=== PATIENT | male | born 1955 ===

== ENCOUNTER 2019-03-26 22:37 | Observation (INO) | payer MEDICARE ==
--- NOTE | 2019-03-26 23:18 | C.PDOC ---
History Of Present Illness Patient presents with SOB and cough productive of yellowish sputum. Patient still smokes. Speaking mostly in complete sentences. Denies fever or chills. Time Seen by Provider: 03/26/19 23:17 Chief Complaint (Nursing): Shortness Of Breath History Per: Patient History/Exam Limitations: no limitations Onset/Duration Of Symptoms: Days Current Symptoms Are (Timing): Still Present Initiating Event: Upper Respiratory Illness Exacerbating Factor(s): Coughing Current Respiratory Medications: See Home Med List Severity: Moderate Pain Scale Rating Of: 4 Associated Symptoms: Productive Cough Reports Recently: Seen In ED, Treated By A Physician, Hospitalized Recent travel outside of the [place]: No Additional History Per: Patient Past Medical History Reviewed: Historical Data, Nursing Documentation, Vital Signs Vital Signs: Last Vital Signs Temp 98.2 F 03/26/19 22:48 Pulse 82 03/26/19 22:48 Resp 20 03/26/19 22:48 BP Pulse Ox 92 L 03/26/19 22:48 Primary Care Physician: Non H Provider - Medical History PMH: COPD, Schizophrenia Denies: Diabetes, Hepatitis, HIV, HTN, Seizures, Sexually Transmitted Disease - [facility] Procedures GROUP PSYCHOTHERAPY (02/19/19) INDIVIDUAL PSYCHOTHERAPY, SUPPORTIVE (02/19/19) Family History: States: No Known Family Hx - Social History Hx Alcohol Use: No Hx Substance Use: Yes - Immunization History Hx Tetanus Toxoid Vaccination: No Hx Influenza Vaccination: No Hx Pneumococcal Vaccination: No Review Of Systems Constitutional: Negative for: Fever, Chills Cardiovascular: Negative for: Chest Pain, Palpitations Respiratory: Positive for: Cough, Shortness of Breath, Sputum Gastrointestinal: Negative for: Nausea, Vomiting Neurological: Negative for: Weakness, Numbness Physical Exam - Physical Exam Appears: Non-toxic Skin: Warm, Dry Head: Normacephalic Oral Mucosa: Moist Neck: Supple Chest: Symmetrical, No Tenderness Cardiovascular: Rhythm Regular Respiratory: No Rales, Rhonchi (Scattered), No Wheezing Gastrointestinal/Abdominal: Soft, No Tenderness Back: No CVA Tenderness Extremity: Normal ROM Extremity: Bilateral: Atraumatic Neurological/Psych: Oriented x3 Gait: Steady ED Course And Treatment - Laboratory Results Result Diagrams: 03/27/19 00:06 03/27/19 00:06 O2 Sat by Pulse Oximetry: 92 (Room air) Pulse Ox Interpretation: Abnormal Progress Note: Blood work, EKG, CXR, urinalysis, and blood work ordered. Solumedrol and duoneb administered. Critical Care Time - Critical Care Note Total Time (in mins): 30 Documented critical care: time excludes all time spent performing seperately billable procedures. Disposition Discussed With Dr.: Ward Taylor Comment: accepted the pt on her service and took over the care at 12:52 AM Doctor Will See Patient In The: Hospital Counseled Patient/Family Regarding: Studies Performed, Diagnosis - Disposition Referrals: Non [facility] Provider, [Primary Care Provider] - Disposition: HOSPITALIZED Disposition Time: 23:18 Condition: FAIR Forms: On[employer] (Lao) - POA Present On Arrival: Poor Glycemic Control - Clinical Impression Clinical Impression: Chr obstructive pulmonary disease w/ acute lower respiratory infxn - Scribe Statement The provider has reviewed the documentation as recorded by the Scribe Emil Deluna All medical record entries made by the Scribe were at my direction and personally dictated by me. I have reviewed the chart and agree that the record accurately reflects my personal performance of the history, physical exam, medical decision making, and the department course for this patient. I have also personally directed, reviewed, and agree with the discharge instructions and dis position. Decision To Admit - Pt Status Changed To: Hospital Disposition Of: Observation - . Bed Request Type: Regular Admitting Physician: Ward Taylor Patient Diagnosis: Chr obstructive pulmonary disease w/ acute lower respiratory infxn
[2019-03-26] MEDS ORDERED: Albuterol-Ipratrop 3 mg / 0.5 (3 ml) UD ONE (23:22)
[2019-03-26 23:53] LABS: ABG ALLEN TEST POS; ARTERIAL BLOOD GAS O2 SAT 99.2 % (95-98); ARTERIAL BLOOD GAS PCO2 42 mm/Hg (35-45); ARTERIAL BLOOD GAS PH 7.44 (7.35-7.45); ARTERIAL BLOOD GAS PO2 103 mm/Hg (80-100); ARTERIAL BLOOD GAS TCO2 29.8 mmol/L (22-28)
[2019-03-27] MEDS: Albuterol-Ipratrop 3 mg / 0.5 (3 ml) UD IH SCH ×2 (00:05→00:06)
[2019-03-27 00:10] LABS: HEMOGLOBIN 12.7 g/dL (12.0-18.0); LYMPH % 12.8 % (20.0-40.0); MEAN CELL VOLUME 79.7 fL (80.0-94.0); MEAN CORPUSCULAR HEMOGLOBIN 26.9 pg (27.0-31.0); MEAN CORPUSCULAR HGB CONC 33.7 g/dL (33.0-37.0); MEAN PLATELET VOLUME 10.5 fL (7.2-11.7); NEUT % 77.9 % (50.0-75.0); RBC 4.73 Mil/uL (4.40-5.90); WHITE BLOOD COUNT 13.4 K/uL (4.8-10.8)
[2019-03-27 00:11] LABS: BASO # 0.1 K/uL (0.0-0.2); BASO % 0.5 % (0.0-2.0); EOS % 0.1 % (0.0-4.0); LYMPH # 1.7 K/uL (1.0-4.3); MONO # 1.2 K/uL (0.0-0.8); MONO % 8.7 % (0.0-10.0); NEUT # 10.4 K/uL (1.8-7.0)
[2019-03-27] MEDS ORDERED: Albuterol-Ipratrop 3 mg / 0.5 (3 ml) UD ONE (00:11)
[2019-03-27 00:15] LABS: INR 1.4
[2019-03-27 00:23] LABS: ALB/GLOB RATIO 1.2 (1.0-2.1); ALBUMIN 3.8 g/dL (3.5-5.0); ALT/SGPT 34 U/L (21-72); AST/SGOT 50 U/L (17-59); BLOOD UREA NITROGEN 13 mg/dL (9-20); CALCIUM 8.7 mg/dl (8.6-10.4); GFR NON-AFRICAN AMERICAN > 60
[2019-03-27] MEDS ORDERED: Azithromycin 500mg/250ML NS 500 MG/250 ML BAG IVPB SCH (00:30)
[2019-03-27] MEDS ORDERED: cefTRIAXone IV 1 gm in Dextros 50 ML IVPB ONE (00:30)
[2019-03-27] MEDS ORDERED: Azithromycin 500mg/250ML NS 500 MG/250 ML BAG IVPB ONE ×2 (00:30→02:07)
[2019-03-27 01:46] LABS: URINE BILIRUBIN NEGATIVE (NEGATIVE); URINE BLOOD NEGATIVE (NEGATIVE); URINE CLARITY Hazy (Clear); URINE COLOR Amber (YELLOW); URINE GLUCOSE (UA) NORMAL (Normal); URINE LEUKOCYTE ESTERASE NEG Leu/uL (Negative); URINE PROTEIN 1+ mg/dL (NEGATIVE)
[2019-03-27 02:50] VITALS: RESP 20
[2019-03-27] MEDS: MethylPREDNISolone 40 mg Vial IVP SCH ×3 (05:27→21:18)
[2019-03-27 07:27] LABS: ALBUMIN 3.4 g/dL (3.5-5.0); ALT/SGPT 32 U/L (21-72); AST/SGOT 41 U/L (17-59); BLOOD UREA NITROGEN 11 mg/dL (9-20); CALCIUM 8.8 mg/dl (8.6-10.4); GFR NON-AFRICAN AMERICAN > 60
[2019-03-27 08:20] LABS: HEMOGLOBIN 12.3 g/dL (12.0-18.0); LYMPH # 0.6 K/uL (1.0-4.3); MEAN CELL VOLUME 80.1 fL (80.0-94.0); MEAN PLATELET VOLUME 11.2 fL (7.2-11.7); MONO # 0.1 K/uL (0.0-0.8); MONO % 1.3 % (0.0-10.0); NEUT # 8.1 K/uL (1.8-7.0); NEUT % 91.7 % (50.0-75.0); NRBC % 0.1 % (0.0-2.0); PLATELET COUNT 273 K/uL (130-400); RBC 4.38 Mil/uL (4.40-5.90); RED CELL DISTRIBUTION WIDTH 16.2 % (11.5-14.5); WHITE BLOOD COUNT 8.8 K/uL (4.8-10.8)
[2019-03-27] MEDS: Albuterol-Ipratrop 3 mg / 0.5 (3 ml) UD INH SCH ×3 (08:20→20:35)
--- NOTE | 2019-03-27 09:53 | CP.PCM.PN ---
Subjective - Date & Time of Evaluation Date of Evaluation: 03/27/19 Time of Evaluation: 09:53 - Subjective Subjective: H&P dictated #[id number] Objective - Vital Signs/Intake and Output Vital Signs (last 24 hours): Temp Pulse Resp BP Pulse Ox 98.5 F 62 20 95/62 L 97 03/27/19 08:00 03/27/19 08:00 03/27/19 08:00 03/27/19 08:00 03/27/19 08:00 - Medications Medications: Current Medications Albuterol/Ipratropium (Duoneb 3 Mg/0.5 Mg (3 Ml) Ud) 3 ml INH RQ6 [facility] Last Admin: 03/27/19 08:20 Dose: 3 ml Bupropion HCl (Wellbutrin Xl) 150 mg PO DAILY [facility] Escitalopram Oxalate (Lexapro) 20 mg PO DAILY [facility] Methylprednisolone (Solu-Medrol) 40 mg IVP Q8 [facility] Last Admin: 03/27/19 05:27 Dose: 40 mg Pantoprazole Sodium (Protonix Ec Tab) 40 mg PO DAILY [facility] Pneumococcal Polyvalent Vaccine (Pneumovax 23 Vaccine) 0.5 ml IM .ONCE ONE Stop: 03/29/19 10:01 Quetiapine Fumarate (Seroquel) 50 mg PO HS [facility] Quetiapine Fumarate (Seroquel) 100 mg PO HS [facility] - Labs Labs: 03/27/19 07:06 03/27/19 07:06 PT 15.0 SECONDS (9.7-12.2) H 03/27/19 00:06 INR 1.4 03/27/19 00:06 APTT 35.0 SECONDS (21-34) H 03/27/19 00:06
[2019-03-27] MEDS: buPROPion 150 mg/24 Hours XL Tab PO SCH (10:27)
[2019-03-27] MEDS: Pantoprazole 40 mg EC Tab PO SCH (10:27)
[2019-03-27] MEDS: Enoxaparin 40 mg Syringe SC SCH (10:28)
[2019-03-27] MEDS ORDERED: Azithromycin 500 MG in Sodium Chloride 0.9% 250 ML IVPB SCH (12:00)
[2019-03-27 12:18] LABS: LYMPHOCYTE 5 % (20-40); MONOCYTE 1 % (0-10); NEUTROPHIL 94 % (50-75); TOTAL CELLS COUNTED 100
[2019-03-27 12:20] LABS: ANISOCYTOSIS SLIGHT; PLATELET ESTIMATE NORMAL (NORMAL)
[2019-03-27] MEDS: Azithromycin 500 MG in Sodium Chloride 0.9% 250 ML IVPB SCH (13:48)
[2019-03-27 17:14] LABS: BARBITURATES, UR NEGATIVE (NEGATIVE); BENZODIAZEPINES, UR NEGATIVE (NEGATIVE); PHENCYCLIDINE, UR NEGATIVE (NEGATIVE)
[2019-03-27 17:15] LABS: OPIATES, UR POSITIVE (NEGATIVE)
--- NOTE | 2019-03-27 17:51 | RAD ---
Date of service: 03/26/2019 PROCEDURE: CHEST RADIOGRAPH, 1 VIEW HISTORY: SOB COMPARISON: 02/19/2019 FINDINGS: LUNGS: Clear. PLEURA: No pneumothorax or pleural fluid seen. CARDIOVASCULAR: No aortic atherosclerotic calcification present. Normal. OSSEOUS STRUCTURES: No significant abnormalities. VISUALIZED UPPER ABDOMEN: Normal. OTHER FINDINGS: None. IMPRESSION: No active disease.
--- NOTE | 2019-03-27 23:49 | HP ---
CHIEF COMPLAINT: Progressive worsening of shortness of breath, wheezing, and cough with yellowish sputum for the past one month. HISTORY OF PRESENT ILLNESS: Mr. Zambrano is a 64-year-old male with past medical history of depression and COPD who was admitted to the hospital in 01/2019 for major depression to psych floor, discharged on 03/05/2019. Has been homeless for the past two months. Came into the emergency room with complaints of progressive worsening of cough with yellowish-greenish sputum, shortness of breath, wheezing, and sore throat. In the ED, the patient was found to be having COPD exacerbation, and the patient is being admitted for further management. When I examined the patient, he is feeling slightly better. Denies any headache or dizziness. Complaining of shortness of breath and wheezing. Denies any nausea or vomiting. Denies any chest pain. Denies any abdominal pain, diarrhea, or constipation. Denies any urinary complaints. Denies any leg pains or leg swelling. PAST MEDICAL HISTORY: Depression. Denies any hypertension or diabetes mellitus. PAST SURGICAL HISTORY: Underwent bone grafting many years ago. FAMILY HISTORY: Diabetes mellitus in mother. Both . Mother from throat cancer. PERSONAL HISTORY: He is , having four children. Worked in [employer]. Now, he is disabled and retired. SOCIAL HISTORY: He smokes one pack per day. Drinks alcohol. Uses heroin or cocaine intermittently. ALLERGIES: NO KNOWN DRUG ALLERGIES. MEDICATIONS: His medications at home are Seroquel 150 mg p.o. at bedtime, Lexapro 20 mg daily, Wellbutrin 150 mg p.o. daily. REVIEW OF SYSTEMS: As described in history of present illness. All other systems reviewed and were found to be negative. PHYSICAL EXAMINATION: GENERAL: Middle-aged male, lying in bed, in no acute distress. VITAL SIGNS: Blood pressure 100/55, pulse 81, respirations 20, temperature 98 degrees Fahrenheit, O2 sat is 97% on 2 L nasal cannula. HEENT: Pupils are equal, round and reacting to light and accommodation. Extraocular muscles intact. No icterus. No pallor. No oral thrush. No pharyngeal congestion. NECK: Supple. No JVD. LUNGS: Bilateral vesicular breath sounds. No wheezing. No rhonchi. CARDIOVASCULAR SYSTEM: S1 and S2 present, regular. ABDOMEN: Soft and nontender. Bowel sounds present. No guarding. No rigidity. No rebound tenderness noted. CENTRAL NERVOUS SYSTEM: Alert, awake, and oriented x3. No focal deficits noted. EXTREMITIES: No edema. Palpable peripheral pulses. LABORATORY DATA: Labs done from the emergency room: WBC 13.4, hemoglobin 12.7, hematocrit 37.7, platelets 297. PT 15, INR 1.4, PTT 35. ABG on 3 L: The pH is 7.44, pCO2 is 42, pO2 is 103. Sodium 131, potassium 3.2, chloride 97, bicarb 28, BUN 13, creatinine 0.6, glucose 115, calcium 8.7, magnesium 2. Total bilirubin 0.8, AST 30, ALT 34, alkaline phosphatase 90, total protein 7, albumin 3.8. UA: Specific gravity 1.030, pH is 5, protein 1+, otherwise negative. Chest x-ray: Negative for any infiltrate. EKG: No acute ST-T changes. ASSESSMENT AND PLAN: Middle-aged male with history of chronic obstructive pulmonary disease and depression, came in with one-month history of progressive worsening of cold, cough with yellowish-greenish sputum, recent shortness of breath. In the emergency department, the patient was found to be having chronic obstructive pulmonary disease exacerbation, and the patient is being admitted for further management. 1. Chronic obstructive pulmonary disease exacerbation. 2. Acute bronchitis, rule out infiltrate. 3. Major depression, recently treated at [facility]. PLAN: The patient is being admitted to med-surg floor. He received Solu-Medrol and nebulizer treatment and prophylactic antibiotics in the emergency room. Continue with Rocephin 1 g daily with Zithromax 500 mg IV daily. Continue with DuoNeb every 6 hours, Solu-Medrol 40 mg IV every 8 hours. Peak flows before and after treatments. GI prophylaxis with Protonix. We will check drug screen. Repeat labs in the morning. The patient is homeless. We will request clinical social work aide for discharge planning. We will continue with his psychiatric medication. We will ask for the recommendation as his clinical course progresses. Ward Taylor MD
[2019-03-28] MEDS: Albuterol-Ipratrop 3 mg / 0.5 (3 ml) UD INH SCH ×4 (01:35→19:47)
[2019-03-28] MEDS: MethylPREDNISolone 40 mg Vial IVP SCH (06:01)
[2019-03-28 08:43] LABS: BASO % 0.3 % (0.0-2.0); HEMOGLOBIN 11.4 g/dL (12.0-18.0); LYMPH # 0.8 K/uL (1.0-4.3); LYMPH % 4.4 % (20.0-40.0); MEAN CELL VOLUME 80.5 fL (80.0-94.0); MEAN CORPUSCULAR HEMOGLOBIN 26.6 pg (27.0-31.0); MEAN CORPUSCULAR HGB CONC 33.1 g/dL (33.0-37.0); MEAN PLATELET VOLUME 11.2 fL (7.2-11.7); MONO # 0.4 K/uL (0.0-0.8); MONO % 2.4 % (0.0-10.0); NEUT # 16.2 K/uL (1.8-7.0); NEUT % 92.9 % (50.0-75.0); PLATELET COUNT 307 K/uL (130-400); RBC 4.27 Mil/uL (4.40-5.90); RED CELL DISTRIBUTION WIDTH 16.2 % (11.5-14.5)
[2019-03-28 08:52] LABS: ALB/GLOB RATIO 1.1 (1.0-2.1); ALBUMIN 3.1 g/dL (3.5-5.0); ALT/SGPT 40 U/L (21-72); AST/SGOT 29 U/L (17-59); BLOOD UREA NITROGEN 13 mg/dL (9-20); CALCIUM 8.8 mg/dl (8.6-10.4); GFR NON-AFRICAN AMERICAN > 60; HDL CHOLESTEROL 24 mg/dL (30-70)
[2019-03-28 09:02] LABS: LDL CHOLESTEROL 86 mg/dL (0-129)
[2019-03-28 09:11] LABS: WHITE BLOOD COUNT 17.5 K/uL (4.8-10.8)
[2019-03-28] MEDS: Pantoprazole 40 mg EC Tab PO SCH (09:13)
[2019-03-28] MEDS: Enoxaparin 40 mg Syringe SC SCH (09:13)
[2019-03-28] MEDS: buPROPion 150 mg/24 Hours XL Tab PO SCH (09:13)
[2019-03-28] MEDS: Azithromycin 500 MG in Sodium Chloride 0.9% 250 ML IVPB SCH (10:02)
[2019-03-28 11:06] LABS: ANISOCYTOSIS MODERATE; BANDS 2 % (0-2); GIANT PLATELETS PRESENT; LARGE PLATELETS PRESENT; LYMPHOCYTE 5 % (20-40); MONOCYTE 2 % (0-10); NEUTROPHIL 91 % (50-75); PLATELET ESTIMATE NORMAL (NORMAL); TOTAL CELLS COUNTED 100
[2019-03-28 11:07] LABS: HYPOCHROMIC SLIGHT; TOXIC GRANULATION PRESENT
[2019-03-28 11:08] LABS: POLYCHROMIC SLIGHT
--- NOTE | 2019-03-28 13:23 | CP.PCM.PN ---
Subjective - Date & Time of Evaluation Date of Evaluation: 03/28/19 Time of Evaluation: 13:23 - Subjective Subjective: Progress note dictated #[id number] Objective - Vital Signs/Intake and Output Vital Signs (last 24 hours): Temp Pulse Resp BP Pulse Ox 98 F 60 20 98/55 L 95 03/28/19 08:00 03/28/19 08:00 03/28/19 08:00 03/28/19 08:00 03/27/19 23:18 Intake and Output: 03/28/19 03/28/19 06:59 18:59 Intake Total 120 Balance 120 - Medications Medications: Current Medications Albuterol/Ipratropium (Duoneb 3 Mg/0.5 Mg (3 Ml) Ud) 3 ml INH RQ6 [facility] Last Admin: 03/28/19 09:23 Dose: Not Given Bupropion HCl (Wellbutrin Xl) 150 mg PO DAILY [facility] Last Admin: 03/28/19 09:13 Dose: 150 mg Enoxaparin Sodium (Lovenox) 40 mg SC DAILY [facility] Last Admin: 03/28/19 09:13 Dose: Not Given Escitalopram Oxalate (Lexapro) 20 mg PO DAILY [facility] Last Admin: 03/28/19 09:13 Dose: 20 mg Ceftriaxone Sodium 1 gm/ (Sodium Chloride) 100 mls @ 100 mls/hr IVPB DAILY [facility]; Protocol Last Admin: 03/28/19 10:02 Dose: Not Given Methylprednisolone (Solu-Medrol) 40 mg IVP DAILY [facility] Pantoprazole Sodium (Protonix Ec Tab) 40 mg PO DAILY [facility] Last Admin: 03/28/19 09:13 Dose: 40 mg Pneumococcal Polyvalent Vaccine (Pneumovax 23 Vaccine) 0.5 ml IM .ONCE ONE Stop: 03/29/19 10:01 Quetiapine Fumarate (Seroquel) 100 mg PO HS [facility] Last Admin: 03/27/19 21:31 Dose: 100 mg - Labs Labs: 03/28/19 08:21 03/28/19 08:21 PT 15.0 SECONDS (9.7-12.2) H 03/27/19 00:06 INR 1.4 03/27/19 00:06 APTT 35.0 SECONDS (21-34) H 03/27/19 00:06
[2019-03-28] MEDS: guaiFENesin 600 mg ER Tab PO SCH (18:08)
[2019-03-29] MEDS: Albuterol-Ipratrop 3 mg / 0.5 (3 ml) UD INH SCH ×4 (02:36→19:50)
--- NOTE | 2019-03-29 07:27 | PN ---
DATE: 03/28/2019 SUBJECTIVE: The patient is seen and examined at bedside. The patient claims he is still having cough with greenish sputum, still complaining of shortness of breath. He claims that he is not able to keep anything down that he has been eating. Denies any diarrhea. Denies any episodes of vomiting. PHYSICAL EXAMINATION: GENERAL: Middle-aged male, lying in bed, in no acute distress. VITAL SIGNS: Blood pressure 98/55, pulse 60, respirations 20, temperature 98 degrees Fahrenheit, O2 sat is 95% on room air. HEENT: Pupils are equal, round, reacting to light and accommodation. Extraocular muscles intact. No icterus. No pallor. No oral thrush. No oropharyngeal congestion. NECK: Supple. No JVD. LUNGS: Bilateral vesicular breath sounds. Occasional wheezing. No rhonchi. CARDIOVASCULAR SYSTEM: S1 and S2 present, regular. ABDOMEN: Soft, nontender. Bowel sounds present. No guarding. No rigidity. No rebound tenderness noted. CENTRAL NERVOUS SYSTEM: Alert, awake, and oriented x3. No focal deficits noted. EXTREMITIES: No edema. Palpable peripheral pulses. MEDICATIONS: Include DuoNeb every 6 hours, Wellbutrin 150 mg daily, Rocephin 1 g daily, Lovenox 40 mg subcu daily, Lexapro 20 mg daily, Solu-Medrol 40 mg IV every 8 hours, Protonix 40 mg daily, Seroquel 100 mg p.o. h.s. ASSESSMENT AND PLAN: Middle-aged male with history of depression, chronic obstructive pulmonary disease, admitted for acute bronchitis, chronic obstructive pulmonary disease exacerbation, continue with nebulizer treatments, Solu-Medrol intravenous. We will decrease Solu-Medrol to 40 mg intravenous daily as elevated WBC count probably secondary to steroids, continue with nebulizer treatments, Rocephin and Zithromax. Chest x-ray is negative for any infiltrate. We will add Mucinex, we will check peak flows before and after treatment. Repeat labs in a.m. Continue with his psych meds as per Psychiatry. assistant guest services manager for discharge planning. We will give Zofran as needed. Ward Taylor MD
[2019-03-29 08:57] LABS: BASO % 0.2 % (0.0-2.0); HEMOGLOBIN 11.7 g/dL (12.0-18.0); LYMPH % 18.4 % (20.0-40.0); MEAN CELL VOLUME 81.1 fL (80.0-94.0); MEAN CORPUSCULAR HEMOGLOBIN 27.6 pg (27.0-31.0); MEAN PLATELET VOLUME 10.4 fL (7.2-11.7); MONO # 0.6 K/uL (0.0-0.8); MONO % 5.9 % (0.0-10.0); NEUT # 8.2 K/uL (1.8-7.0); NEUT % 75.5 % (50.0-75.0); NRBC % 0.1 % (0.0-2.0); RBC 4.23 Mil/uL (4.40-5.90); RED CELL DISTRIBUTION WIDTH 16.2 % (11.5-14.5); WHITE BLOOD COUNT 10.9 K/uL (4.8-10.8)
[2019-03-29 09:20] LABS: BLOOD UREA NITROGEN 19 mg/dL (9-20); CALCIUM 8.3 mg/dl (8.6-10.4); GFR NON-AFRICAN AMERICAN > 60
[2019-03-29] MEDS: MethylPREDNISolone 40 mg Vial IVP SCH (09:54)
[2019-03-29] MEDS: buPROPion 150 mg/24 Hours XL Tab PO SCH (09:54)
[2019-03-29] MEDS: Pantoprazole 40 mg EC Tab PO SCH (09:54)
[2019-03-29] MEDS: guaiFENesin 600 mg ER Tab PO SCH ×2 (09:54→17:09)
[2019-03-29] MEDS: Enoxaparin 40 mg Syringe SC SCH (09:55)
[2019-03-29] MEDS ORDERED: Pneumococcal 23-Valent Vaccine IM ONE (10:00)
--- NOTE | 2019-03-29 12:25 | CP.PCM.PN ---
Subjective - Date & Time of Evaluation Date of Evaluation: 03/29/19 Time of Evaluation: 12:25 - Subjective Subjective: Progress note dictated #[id number] Objective - Vital Signs/Intake and Output Vital Signs (last 24 hours): Temp Pulse Resp BP Pulse Ox 98.7 F 63 20 100/65 96 03/29/19 08:00 03/29/19 08:00 03/29/19 08:00 03/29/19 08:00 03/29/19 08:00 Intake and Output: 03/29/19 03/29/19 06:59 18:59 Intake Total 120 Balance 120 - Medications Medications: Current Medications Albuterol/Ipratropium (Duoneb 3 Mg/0.5 Mg (3 Ml) Ud) 3 ml INH RQ6 [facility] Last Admin: 03/29/19 08:17 Dose: 3 ml Bupropion HCl (Wellbutrin Xl) 150 mg PO DAILY [facility] Last Admin: 03/29/19 09:54 Dose: 150 mg Enoxaparin Sodium (Lovenox) 40 mg SC DAILY [facility] Last Admin: 03/29/19 09:55 Dose: Not Given Escitalopram Oxalate (Lexapro) 20 mg PO DAILY [facility] Last Admin: 03/29/19 09:54 Dose: 20 mg Guaifenesin (Mucinex La) 600 mg PO BID [facility] Last Admin: 03/29/19 09:54 Dose: 600 mg Ceftriaxone Sodium 1 gm/ (Sodium Chloride) 100 mls @ 100 mls/hr IVPB DAILY [facility]; Protocol Last Admin: 03/29/19 09:55 Dose: 100 mls/hr Methylprednisolone (Solu-Medrol) 40 mg IVP DAILY [facility] Last Admin: 03/29/19 09:54 Dose: 40 mg Pantoprazole Sodium (Protonix Ec Tab) 40 mg PO DAILY [facility] Last Admin: 03/29/19 09:54 Dose: 40 mg Quetiapine Fumarate (Seroquel) 100 mg PO HS [facility] Last Admin: 03/28/19 22:18 Dose: 100 mg - Labs Labs: 03/29/19 08:42 03/29/19 08:42 PT 15.0 SECONDS (9.7-12.2) H 03/27/19 00:06 INR 1.4 03/27/19 00:06 APTT 35.0 SECONDS (21-34) H 03/27/19 00:06
[2019-03-29 16:28] VITALS: O2SAT 95
--- NOTE | 2019-03-30 01:22 | PN ---
DATE: 03/29/2019 SUBJECTIVE: The patient is seen and examined at bedside. The patient still complains of cough with yellowish sputum. Wheezing is better. Remained afebrile. Initially, the patient was about to be discharged at which point, the patient started complaining of diarrhea, so the patient's discharge is being held. PHYSICAL EXAMINATION: GENERAL: Middle-aged male, lying in bed, in no acute distress. VITAL SIGNS: Blood pressure 105/64, pulse 64, respirations 20, temperature 97.2 degrees Fahrenheit, O2 sat is 95% on room air. HEENT: Pupils equal, round, reacting to light and accommodation. Extraocular muscles intact. No icterus. No pallor. No oral thrush. No pharyngeal congestion. NECK: Supple. No JVD. LUNGS: Bilateral vesicular breath sounds. No wheezing. No rhonchi. CARDIOVASCULAR SYSTEM: S1 and S2 present, regular. ABDOMEN: Soft. Nontender. Bowel sounds present. No guarding. No rigidity. No rebound tenderness noted. CENTRAL NERVOUS SYSTEM: Alert, awake, and oriented x3. No focal deficits noted. EXTREMITIES: No edema. Palpable peripheral pulses. MEDICATIONS: Singulair, DuoNeb every 6 hours, Wellbutrin 150 mg daily, Rocephin 1 g daily, Lovenox 40 mg subcu daily, Lexapro 20 mg daily, Mucinex 600 mg p.o. b.i.d., Solu-Medrol 40 mg IV daily, Protonix 40 mg daily, Seroquel 100 mg p.o. at bedtime. LABORATORY DATA: Labs from this morning: WBC 10.9, hemoglobin 11.7, hematocrit 34.3, platelets 351. Sodium 141, potassium 3.8, chloride 104, bicarb 30, BUN 19, creatinine 0.8, glucose 93, calcium 8.3. Urine drug screen positive for opiates. Urine culture, blood cultures negative so far. ASSESSMENT AND PLAN: A middle-aged male with history of chronic obstructive pulmonary disease, depression. Admitted for acute bronchitis, chronic obstructive pulmonary disease exacerbation. Now complaining of diarrhea, rule out Clostridium difficile colitis. We will continue with nebulizer treatment. Continue with Solu-Medrol. We will check stool workup. If Clostridium difficile negative and the patient is feeling better, we will plan discharging the patient home in the morning. non emergency services ambulance driver for discharge planning. Ward Taylor MD
[2019-03-30] MEDS: Albuterol-Ipratrop 3 mg / 0.5 (3 ml) UD INH SCH ×2 (02:47→07:31)
[2019-03-30 07:48] VITALS: BP 111/67; PULSE 58; TEMP 97.9
[2019-03-30] MEDS: guaiFENesin 600 mg ER Tab PO SCH (10:52)
[2019-03-30] MEDS: Pantoprazole 40 mg EC Tab PO SCH (10:52)
[2019-03-30] MEDS: buPROPion 150 mg/24 Hours XL Tab PO SCH (10:52)
[2019-03-30] MEDS: MethylPREDNISolone 40 mg Vial IVP SCH (10:52)
[2019-03-30] MEDS: Enoxaparin 40 mg Syringe SC SCH (10:53)
--- NOTE | 2019-03-30 10:55 | CP.PCM.PN ---
Subjective - Date & Time of Evaluation Date of Evaluation: 03/30/19 Time of Evaluation: 10:55 - Subjective Subjective: Discharge summary dictated #[id number] Objective - Vital Signs/Intake and Output Vital Signs (last 24 hours): Temp Pulse Resp BP Pulse Ox 97.9 F 58 L 20 111/67 95 03/30/19 07:45 03/30/19 07:45 03/30/19 07:45 03/30/19 07:45 03/30/19 07:45 Intake and Output: 03/30/19 03/30/19 06:59 18:59 Intake Total 680 Balance 680 - Medications Medications: Current Medications Albuterol/Ipratropium (Duoneb 3 Mg/0.5 Mg (3 Ml) Ud) 3 ml INH RQ6 [facility] Last Admin: 03/30/19 07:31 Dose: 3 ml Bupropion HCl (Wellbutrin Xl) 150 mg PO DAILY [facility] Last Admin: 03/30/19 10:52 Dose: 150 mg Enoxaparin Sodium (Lovenox) 40 mg SC DAILY [facility] Last Admin: 03/30/19 10:53 Dose: 40 mg Escitalopram Oxalate (Lexapro) 20 mg PO DAILY [facility] Last Admin: 03/30/19 10:52 Dose: 20 mg Guaifenesin (Mucinex La) 600 mg PO BID [facility] Last Admin: 03/30/19 10:52 Dose: 600 mg Ceftriaxone Sodium 1 gm/ (Sodium Chloride) 100 mls @ 100 mls/hr IVPB DAILY [facility]; Protocol Last Admin: 03/30/19 09:37 Dose: 100 mls/hr Methylprednisolone (Solu-Medrol) 40 mg IVP DAILY [facility] Last Admin: 03/30/19 10:52 Dose: 40 mg Pantoprazole Sodium (Protonix Ec Tab) 40 mg PO DAILY [facility] Last Admin: 03/30/19 10:52 Dose: 40 mg Quetiapine Fumarate (Seroquel) 100 mg PO HS [facility] Last Admin: 03/29/19 21:16 Dose: 100 mg - Labs Labs: 03/29/19 08:42 03/29/19 08:42 PT 15.0 SECONDS (9.7-12.2) H 03/27/19 00:06 INR 1.4 03/27/19 00:06 APTT 35.0 SECONDS (21-34) H 03/27/19 00:06
--- NOTE | 2019-03-30 13:03 | CARD ---
APPROVED REPORT Date of service: 03/27/2019 EKG Measurement Heart [id number] <Conclusion> Normal sinus rhythm Low voltage QRS Borderline ECG
[2019-03-30] MEDS ORDERED: Pneumococcal 23-Valent Vaccine IM ONE (14:20)
== END 2019-03-30 15:18 | disposition home or self-care (01) ==
LOC: SUPCPDRO 22:37 → C.ER 22:37 → C.3T 03-27 00:51
PROVIDERS: ADMIT Internal Medicine; ATTEND Internal Medicine
DX: J44.0 Chronic obstructive pulmonary disease with (acute) lower respiratory infection (principal); J20.9 Acute bronchitis, unspecified; J44.1 Chronic obstructive pulmonary disease with (acute) exacerbation; F11.90 Opioid use, unspecified, uncomplicated; F17.210 Nicotine dependence, cigarettes, uncomplicated; F20.9 Schizophrenia, unspecified; D72.829 Elevated white blood cell count, unspecified; T38.0X5A Adverse effect of glucocorticoids and synthetic analogues, initial encounter; Z59.0 Homelessness; Z80.8 Family history of malignant neoplasm of other organs or systems; Z83.3 Family history of diabetes mellitus
CPT/HCPCS: 36415; 71045; 80048; 80053; 80061; 80324; 80345; 80346; 80349; 80353; 80358; 80361; 81001; 82803; 83036; 83735; 83992; 84100; 85025; 85610; 85730; 87040; 90471; 90732; 93005; 94640; 96374; 99285; G0378; J0456; J0696; J1650; J2920; J2930; J7050